=== PATIENT | female | born 1970 | race Caucasian/White ===

== ENCOUNTER 2016-07-01 11:09 | Emergency (ER) | payer MEDICAID ==
[~2016-07-01] VITALS: Ht 182.9 cm; Wt 108.9 kg
[~2016-07-01 11:09] MED LIST: ACETAMINOPHEN-1 EAC1 ORAL; ALBUTEROL SULF8.5 GM INH; AZITHROMYCIN250 MG ORAL; DIFLUCAN150 MG PO; IBUPROFEN800 MG ORAL; NKM; PREDNISONE20 MG ORAL; PROAIR HFA8.5 GM INH; PROMETHAZINE-C118 M1 ORAL; ZYRTEC10 MG ORAL
--- NOTE | 2016-07-01 12:21 | Emergency Room Report ---
History of Present Illness General Chief Complaint: Flu Like Symptoms Present Illness HPI The patient is a 46-year-old female presenting with 4 days of fever, chills, and productive cough. The patient also admits to audible wheezing. The patient states that she often gets bronchitis and this feels similar. The patient denies any pain. She denies CP, SOB, rash, VAZQUEZ, weakness, dizziness, hemoptysis, N, V Allergies: Coded Allergies: No Known Allergies (Unverified , 07/01/16) Patient History Past Medical History: see triage record Pertinent Family History: none Reviewed Nursing Documentation: PMH: Agreed, PSxH: Agreed Nursing Documentation-PMH Hx Cardiac Problems: No - Right knee replacment, right ankle surgery x 2 Hx Hypertension: No Hx Pacemaker: No Hx Asthma: Yes Hx COPD: No Hx Diabetes: No Hx Cancer: No Hx Gastrointestinal Problems: No Hx Dialysis: No Hx Neurological Problems: No Hx Cerebrovascular Accident: No Hx Seizures: No Review of Systems All Other Systems: negative except mentioned in HPI Physical Exam Vital Signs Date Time Temp Pulse Resp B/P Pulse Ox O2 Delivery O2 Flow Rate FiO2 07/01/16 11:26 99.3 111 20 105/71 96 Room Air Sp02 EP Interpretation: reviewed, normal General Appearance: no apparent distress, alert, GCS 15, non-toxic Head: normocephalic, atraumatic Eyes: bilateral eye PERRL, bilateral eye normal inspection ENT: hearing grossly normal, normal pharynx, no angioedema, normal voice, TMs + canals normal, uvula midline Neck: full range of motion, supple/symm/no masses Respiratory: normal inspection, no respiratory distress, wheezing - RLL, chest symmetrical Cardiovascular #1: regular rate, rhythm, no edema Gastrointestinal: normal bowel sounds, non tender, soft, non-distended, no guarding, no rebound Genitourinary: normal inspection, no CVA tenderness Musculoskeletal: back normal, gait/station normal, normal range of motion, non- tender Neurologic: alert, oriented x3, responsive, motor strength/tone normal, sensory intact, speech normal Psychiatric: judgement/insight normal, memory normal, mood/affect normal, no suicidal/homicidal ideation Skin: normal color, no rash, warm/dry, well hydrated Lymphatic: no adenopathy Medical Decision Making PA Attestation Dr. Clements is my supervising physician. Patient management was discussed with my supervising physician Diagnostic Impression: Primary Impression: Pneumonia Additional Impression: Vaginal yeast infection ER Course The patient is a 46-year-old female presenting with 4 days of fever, chills, and productive cough Differential diagnosis include but not limited to pharyngitis, sinusitis, AOM, bronchitis, PNA Physical exam:Afebrile. No apparent distress. HEENT exam is unremarkable. Lungs: Good breath sounds. There is right lower lobe wheezing. The patient will be discharged home and is given prescriptions for azithromycin , albuterol, and cough medication. The patient also states that she always gets a vaginal yeast infection after taking antibiotics and has asked for a prescription for Diflucan Last Vital Signs Date Time Temp Pulse Resp B/P Pulse Ox O2 Delivery O2 Flow Rate FiO2 07/01/16 11:26 99.3 111 20 105/71 96 Room Air Status: improved Disposition: HOME, SELF-CARE Condition: Improved Scripts Fluconazole (DIFLUCAN) 150 Mg Tablet 150 MG PO DAILY, #1 TAB Prov: SOLITARIOANBENJA P.A. 07/01/16 Prednisone* (PREDNISONE*) 20 Mg Tablet 20 MG ORAL DAILY, #5 TAB 0 Refills Prov: TERISRAELANRENATAY P.A. 07/01/16 Guaifenesin/Dextromethorphan (Robitussin Cough-Chest Dm Liq) 118 Ml Liquid 10 ML PO Q4HR, #118 ML Prov: TERZIANBENJA P.A. 07/01/16 Albuterol Sulfate* (PROAIR HFA*) 8.5 Gm Hfa.aer.ad 2 PUFFS INH Q6H, #8.5 GM 0 Refills Prov: SOLITARIOANBENJA P.A. 07/01/16 Azithromycin* (ZITHROMAX*) 250 Mg Tablet 250 MG ORAL DAILY, #6 TAB 0 Refills Take two tables once daily for 1 day, then one tablet once daily for 4 days. Prov: SOLITARIOANBENJA P.A. 07/01/16 BENJA BOWERS P.A. Jul 01, 2016 12:21
[2016-07-01] MEDS ORDERED: PROAIR HFA8.5 GM INH (12:24)
[2016-07-01] MEDS ORDERED: ROBITUSSIN COU118 M4 PO (12:24)
[2016-07-01] MEDS ORDERED: PREDNISONE20 MG ORAL (12:24)
[2016-07-01] MEDS ORDERED: ZITHROMAX250 MG ORAL (12:24)
[2016-07-01] MEDS ORDERED: DIFLUCAN150 MG PO (12:25)
[2016-07-01 12:29] VITALS: BP 107/73
== END 2016-07-01 12:35 | disposition home or self-care (01) ==
LOC: EMR 12:33
DX: J18.9 Pneumonia, unspecified organism (principal); B37.3 Candidiasis of vulva and vagina; J45.909 Unspecified asthma, uncomplicated
CPT/HCPCS: 99282

== ENCOUNTER 2016-07-03 08:40 | Emergency (ER) | payer MEDICAID ==
[~2016-07-03] VITALS: Ht 182.9 cm; Wt 108.9 kg
[~2016-07-03 08:40] MED LIST changes: +ROBITUSSIN COU118 M4 PO; +ZITHROMAX250 MG ORAL
[2016-07-03 08:54] VITALS: BP 123/77
[2016-07-03] MEDS ORDERED: Levalbuterol Inh UD 1.25mg/0.5ml HHN ONE (09:00)
[2016-07-03] MEDS ORDERED: Ipratropium 0.02% Inh Soln 2.5ml UD HHN ONE (09:00)
--- NOTE | 2016-07-03 09:02 | Emergency Room Report ---
History of Present Illness General Chief Complaint: Flu Like Symptoms Source: Patient Present Illness HPI Patient presents with complaints of ongoing cough and shortness of breath Patient has a history of asthma as well Feels with the flu symptoms it has exacerbated Denies any chest pain she has had fevers and chills subjectively Uncomfortable time sleeping Denies any vomiting or diarrhea denies any neck pain or photophobia Patient is concerned about the ongoing cough Allergies: Coded Allergies: No Known Allergies (Unverified , 07/01/16) Patient History Past Medical History: see triage record Pertinent Family History: none Last Menstrual Period: 06/02/16 Now: No Reviewed Nursing Documentation: PMH: Agreed, PSxH: Agreed Nursing Documentation-PMH Past Medical History: No History, Except For Hx Hypertension: No Hx Pacemaker: No Hx Asthma: Yes Hx COPD: No Hx Diabetes: No Hx Cancer: No Hx Gastrointestinal Problems: No Hx Dialysis: No Hx Neurological Problems: No Hx Cerebrovascular Accident: No Hx Seizures: No Review of Systems All Other Systems: negative except mentioned in HPI Physical Exam Vital Signs Date Time Temp Pulse Resp B/P Pulse Ox O2 Delivery O2 Flow Rate FiO2 07/03/16 08:46 98.4 105 20 123/77 97 Room Air Sp02 EP Interpretation: reviewed, normal General Appearance: well appearing, no apparent distress Head: normocephalic, atraumatic Eyes: bilateral eye EOMI, bilateral eye PERRL ENT: hearing grossly normal, normal pharynx, TMs + canals normal, uvula midline Neck: full range of motion, supple, no meningismus, no bony tend Respiratory: no rhonchi, no respiratory distress, no retraction, no accessory muscle use, wheezing - Final wheezing is noted in both lower lobes Cardiovascular #1: normal peripheral pulses, regular rate, rhythm, no edema, no gallop, no JVD, no murmur Gastrointestinal: normal bowel sounds, non tender, soft, no mass, no organomegaly, non-distended, no guarding, no hernia, no pulsatile mass, no rebound Musculoskeletal: normal inspection Neurologic: oriented x3, responsive, hole digger III-XII nml as tested, motor strength/ tone normal, sensory intact Psychiatric: mood/affect normal Skin: normal color, no rash, warm/dry, palpation normal Lymphatic: normal inspection, no adenopathy Medical Decision Making Diagnostic Impression: Primary Impression: Influenza-like symptoms Additional Impression: Bronchitis ER Course Patient did not have an imaging study of pain initially therefore one was performed today Patient did also receive a breathing treatment continues to do significantly better There is an asthma component as well which is exacerbating the patient symptoms As well Patient was treated symptomatically I did discuss the need for close outpatient followup Patient also requesting sleeping pills I did advice her that secondary to safety in prescribing campaign, followup with primary physician would be most appropriate for that Chest X-Ray Diagnostic Results EP Interpretation: Yes Findings: no consolidation, no effusion, no pneumothorax Number of Views: 1 Last Vital Signs Date Time Temp Pulse Resp B/P Pulse Ox O2 Delivery O2 Flow Rate FiO2 07/03/16 08:54 98.5 105 20 123/77 97 Room Air Status: improved Disposition: HOME, SELF-CARE Condition: Improved Scripts Promethazine HCl/Codeine (Prometh-Codein 6.25-10 mg/5 ml) 5 Ml Syrup 5 ML PO QHS for 7 Days, ML Prov: LILA SMITH D.O. 07/03/16 Referrals: [facility],REFERRING (PCP) Additional Instructions: Patient is provided with the discharge instructions notified to follow up with primary doctor in the next 2-3 days otherwise return to the er with any worsening symptoms. LILA SMITH D.O. Jul 03, 2016 09:02
[2016-07-03] MEDS ORDERED: LEVAQUIN500 MG ORAL (11:08)
[2016-07-03] MEDS ORDERED: PROMETH-CODEIN 65 ML PO (11:08)
[2016-07-03 11:21] VITALS: BP 129/73
--- NOTE | 2016-07-04 11:46 | Diagnostic Imaging Report ---
Indication: Shortness of breath Technique: XRAY CHEST 1 V Comparison: 06/23/15 Findings: Cardiomediastinal silhouette is stable. There is no consolidation or pleural effusion. Osseous structures are stable. Impression: No acute cardiopulmonary disease.
== END 2016-07-03 11:22 | disposition home or self-care (01) ==
LOC: EMR 08:56
DX: J40 Bronchitis, not specified as acute or chronic (principal); J11.1 Influenza due to unidentified influenza virus with other respiratory manifestations; J45.909 Unspecified asthma, uncomplicated
CPT/HCPCS: 71010; 94640; 94664; 99283; J7644

== ENCOUNTER 2017-10-12 12:04 | Emergency (ER) | payer MEDICAID ==
[~2017-10-12] VITALS: Ht 182.9 cm; Wt 120.2 kg
[~2017-10-12 12:04] MED LIST changes: +LEVAQUIN500 MG ORAL; +PROMETH-CODEIN 65 ML PO
[2017-10-12 12:19] VITALS: BP 115/70
[2017-10-12] MEDS ORDERED: Albuterol/Ipratropium 3ml neb HHN ONE (12:45)
--- NOTE | 2017-10-12 13:02 | Emergency Room Report ---
History of Present Illness General Chief Complaint: Flu Like Symptoms Present Illness HPI 47 YO Female presents to the ED c/o dry cough and chest congestion x 5 day(s). hx of bronchitis that led to PNA in the past. pt. reports some yellow phlegm today which prompted her to come to the ED. pt. has associated sore throat, body aches, fatigue. Patient denies fever she reports she has had chills a couple times. Patient denies ill contacts or recent travel. Patient denies wheezing, dyspnea or feeling short of breath. She reports nasal congestion and rhinorrhea. Denies ear pain, high fevers, lethargy, neck pain/stiffness, irritability, photophobia, dehydration, N/V/D. Denies Cp, Palpitations, or changes in Hearing or vision, no Sudden severe VAZQUEZ. Allergies: Coded Allergies: No Known Allergies (Unverified , 07/01/16) Patient History Past Medical History: see triage record Past Surgical History: none Now: No Immunizations: UTD Reviewed Nursing Documentation: PMH: Agreed; PSxH: Agreed Nursing Documentation-PMH Hx Hypertension: No Hx Pacemaker: No Hx Asthma: Yes Hx COPD: No Hx Diabetes: No Hx Cancer: No Hx Gastrointestinal Problems: No Hx Dialysis: No Hx Neurological Problems: No Hx Cerebrovascular Accident: No Hx Seizures: No Review of Systems All Other Systems: negative except mentioned in HPI Physical Exam Vital Signs Date Time Temp Pulse Resp B/P (MAP) Pulse Ox O2 Delivery O2 Flow Rate FiO2 10/12/17 12:07 98.1 91 20 115/70 99 Room Air 98.1 10/12/17 12:44 97 Sp02 EP Interpretation: reviewed, normal General Appearance: no apparent distress, alert, GCS 15, non-toxic Head: normocephalic, atraumatic Eyes: bilateral eye normal inspection, bilateral eye PERRL ENT: hearing grossly normal, normal pharynx, normal voice, TMs + canals normal , uvula midline, moist mucus membranes Neck: full range of motion, no meningismus Respiratory: chest non-tender, lungs clear, normal breath sounds, no rhonchi, no respiratory distress, speaking full sentences, wheezing - mild/ scant bilateral wheezing in upper lung george. Cardiovascular #1: regular rate, rhythm, no edema, normal capillary refill Musculoskeletal: back normal, gait/station normal, normal range of motion, non- tender Neurologic: alert, oriented x3, responsive, motor strength/tone normal, sensory intact, speech normal, grossly normal Psychiatric: judgement/insight normal Skin: normal color, no rash, warm/dry, well hydrated Lymphatic: no adenopathy Medical Decision Making PA Attestation Dr. Carrera is my supervising Physician whom patient management has been discussed with. Diagnostic Impression: Primary Impression: Acute bronchitis Qualified Codes: J20.9 - Acute bronchitis, unspecified ER Course Pt. presents to the ED c/o dry cough and chest congestion x 5 day(s). hx of bronchitis that led to PNA in the past. pt. reports some yellow phlegm today which prompted her to come to the ED. pt. has associated sore throat, body aches , fatigue. Patient denies fever she reports she has had chills a couple times. Patient denies ill contacts or recent travel. Patient denies wheezing, dyspnea or feeling short of breath. She reports nasal congestion and rhinorrhea. Denies ear pain, high fevers, lethargy, neck pain/stiffness, irritability, photophobia, dehydration, N/V/D. Denies Cp, Palpitations, or changes in Hearing or vision, no Sudden severe VAZQUEZ. Ddx considered but are not limited to URI, pneumonia, PE, strep pharyngitis, meningitis. Vital signs: Pt.is afebrile VS are WNL H&PE are most consistent with bronchitis, non-toxic in appearance, NAD. ORDERS: none required at this time, the diagnosis is clinical ED INTERVENTIONS: -Wm -I discussed extensively about antibiotic resistance and I feel her presentation exhibits bilateral symptoms rather than bacterial infection. She was very hesitant as she was worried that she has pneumonia. She was given reassurance. Discussed antibiotic treatment and if she has worsening of her symptoms or develops fever that at that time antibiotics would be appropriate. DISCHARGE: At this time pt. is stable for d/c to home. Will provide printed patient care instructions, and any necessary prescriptions. Care plan and follow up instructions have been discussed with the patient prior to discharge. Last Vital Signs Date Time Temp Pulse Resp B/P (MAP) Pulse Ox O2 Delivery O2 Flow Rate FiO2 10/12/17 12:44 21 10/12/17 12:44 76 16 98 Room Air 10/12/17 12:19 98.1 115/70 98.1 Disposition: HOME, SELF-CARE Condition: Stable Scripts Naproxen* (NAPROXEN*) 500 Mg Tablet.dr 500 MG ORAL TWICE A DAY for 7 Days, #14 TAB Prov: Meagan Anglin 10/12/17 Albuterol Sulfate* (ALBUTEROL SULFATE MDI*) 8.5 Gm Hfa.aer.ad 2 PUFF INH Q4H, #1 INH 0 Refills Prov: Meagan Anglin 10/12/17 Cetirizine Hcl/Pseudoephedrine (ZYRTEC-D TABLET) 1 Each Tab.er.12h 1 EACH ORAL Q12HR for 7 Days, #14 TAB Prov: Meagan Anglin 10/12/17 Guaifenesin (Guaifenesin) 1,200 Mg Tab.er.12h 1200 MG PO BID, #20 TAB Prov: Meagan Anglin 10/12/17 Codeine/Promethazine Hcl* (PROMETHAZINE-CODEINE SYRUP*) 118 Ml Syrup 5 ML ORAL Q6H PRN for For Cough, #120 ML 0 Refills Prov: Meagan Anglin 10/12/17 Referrals: NON PHYSICIAN (PCP) Patient Instructions: Acute Bronchitis Additional Instructions: Take medications as directed. * Only fill and take "delayed antibiotic RX if you : Develop measured fevers over 101.0 Follow up with a Primary Care Provider in 3-5 days, even if your symptoms have resolved. --Please review list of primary care clinics, if you do not already have a primary care provider Return sooner to ED if new symptoms occur, or current symptoms become worse. Do not drink alcohol, drive, or operate heavy machinery while taking Cough Syrup as this may cause drowsiness. - Please note that this Emergency Department Report was dictated using [employer] detail representative technology software, occasionally this can lead to erroneous entry secondary to interpretation by the dictation equipment. Meagan Anglin October 12, 2017 13:02
[2017-10-12] MEDS ORDERED: GUAIFENESIN1200 MG PO (13:05)
[2017-10-12] MEDS ORDERED: PROMETHAZINE-C118 M1 ORAL (13:05)
[2017-10-12] MEDS ORDERED: ZYRTEC-D TABLE1 EACH ORAL (13:05)
[2017-10-12] MEDS ORDERED: ALBUTEROL SULF8.5 GM INH (13:05)
[2017-10-12] MEDS ORDERED: NAPROXEN500 M1 ORAL (13:05)
[2017-10-12 13:23] VITALS: BP 115/70
== END 2017-10-12 13:26 | disposition home or self-care (01) ==
LOC: EMR 12:38
DX: J20.9 Acute bronchitis, unspecified (principal); J45.909 Unspecified asthma, uncomplicated
CPT/HCPCS: 94640; 99284; J7620

== ENCOUNTER 2018-06-07 10:43 | Emergency (ER) | payer MEDICAID ==
[~2018-06-07] VITALS: Ht 182.9 cm; Wt 129.3 kg
[~2018-06-07 10:43] MED LIST changes: +GUAIFENESIN1200 MG PO; +NAPROXEN500 M1 ORAL; +ZYRTEC-D TABLE1 EACH ORAL
[2018-06-07 10:50] VITALS: BP 109/62
[2018-06-07] MEDS ORDERED: COLACE100 MG ORAL (12:37)
[2018-06-07] MEDS ORDERED: ANUSOL-HC30 GM RC (12:37)
[2018-06-07] MEDS ORDERED: LD2JL30 TOPIC (12:44)
[2018-06-07 13:00] VITALS: BP 110/70
--- NOTE | 2018-06-09 18:16 | Emergency Room Report ---
History of Present Illness General Chief Complaint: Skin Rash/Abscess Source: Patient Present Illness HPI Patient is a 48-year-old female who presented after increased rectal discomfort. Patient stated that she had been using Preparation H without any improvement. She states that she thinks he may have an abscess. Patient denies fever. She states that she has had similar symptoms in the past. She states this been present for approximately 2 weeks. She denies any prior immunocompromise. Allergies: Coded Allergies: No Known Allergies (Unverified , 07/01/16) Patient History Past Medical History: see triage record Reviewed Nursing Documentation: PMH: Agreed; PSxH: Agreed Nursing Documentation-PMH Past Medical History: No History, Except For Hx Hypertension: No Hx Pacemaker: No Hx Asthma: Yes Hx COPD: No Hx Diabetes: No Hx Cancer: No Hx Gastrointestinal Problems: No Hx Dialysis: No Hx Neurological Problems: No Hx Cerebrovascular Accident: No Hx Seizures: No Review of Systems All Other Systems: negative except mentioned in HPI Physical Exam Vital Signs Date Time Temp Pulse Resp B/P (MAP) Pulse Ox O2 Delivery O2 Flow Rate FiO2 06/07/18 10:50 98.2 18 109/62 98 Room Air 06/07/18 10:50 98 General Appearance: well appearing, no apparent distress, alert, GCS 15, obese Head: normocephalic, atraumatic ENT: hearing grossly normal, normal voice Neck: full range of motion, supple Respiratory: no respiratory distress, speaking full sentences Cardiovascular #1: normal inspection Gastrointestinal: normal inspection Rectal: hemorrhoids - thrombosed hemorrhoid Genitourinary: deferred Musculoskeletal: no calf tenderness Neurologic: normal gait Psychiatric: mood/affect normal Skin: no rash Medical Decision Making Diagnostic Impression: Primary Impression: Thrombosed hemorrhoids ER Course Patient presented for rectal pain. Differential diagnosis includes is not limited to abscess, hemorrhoid, colorectal cancer among others. Patient has a benign exam and does not appear to require any further imaging or laboratory testing at this time. Patient was advised that she may have a thrombosed hemorrhoid. Patient symptoms were greater than 2 weeks. This was discussed with Dr. Arciniega who agreed to see the patient in his clinic. Patient was given discharge information. She was given prescription for symptomatic treatment. There is no evidence of abscess at this time. Last Vital Signs Date Time Temp Pulse Resp B/P (MAP) Pulse Ox O2 Delivery O2 Flow Rate FiO2 06/07/18 13:00 97.9 88 20 110/70 100 Room Air Status: improved Disposition: HOME, SELF-CARE Condition: Stable Scripts Lidocaine HCL 2% Jelly* (Lidocaine Jelly 2%*) 5 Ml Jel.pf.kelsi 5 ML TOPIC DAILY, #15 ML Prov: Jose Roberto Carrera MD 06/07/18 Hydrocortisone Hc 2.5% Cream (ANUSOL-HC 2.5% CREAM) Y Cr 10 GM RC PRN, #30 GM Prov: Jose Roberto Carrera MD 06/07/18 Docusate Sodium* (COLACE*) 100 Mg Capsule 100 MG ORAL TWICE A DAY, #30 CAP Prov: Jose Roberto Carrera MD 06/07/18 Referrals: Kristian Arciniega PHYSICIAN (PCP) Patient Instructions: Hemorrhoids Additional Instructions: Follow up with general surgery for recheck in next few days, return if worse Jose Roberto Carrera MD Jun 09, 2018 18:16
== END 2018-06-07 13:00 | disposition home or self-care (01) ==
LOC: EMR 12:51
DX: K64.5 Perianal venous thrombosis (principal); J45.909 Unspecified asthma, uncomplicated
CPT/HCPCS: 99282

== ENCOUNTER 2019-01-04 10:34 | Emergency (ER) | payer MEDICAID ==
[~2019-01-04] VITALS: Ht 182.9 cm; Wt 102.1 kg
[~2019-01-04 10:34] MED LIST changes: +ANUSOL-HC30 GM RC; +COLACE100 MG ORAL; +LD2JL30 TOPIC
--- NOTE | 2019-01-04 10:37 | NUR ---
ED Nurse Note: pt not found on waiting area.
--- NOTE | 2019-01-04 10:51 | NUR ---
ED Nurse Note: pt with exp wheezing noted with auscultation, speaks full sentences well. states cough and s/s not improving despite use of MDI and abx course. yellow beige phlegm per pt.
[2019-01-04 10:53] VITALS: BP 126/84
--- NOTE | 2019-01-04 11:21 | Emergency Room Report ---
History of Present Illness General Chief Complaint: Upper Respiratory Illness Source: Patient, Medical Record Present Illness HPI 8-year-old female with history of asthma presents with 3-week history of cough, clear sputum production. she reports she is been trying her home inhaler with only partial relief and shortness of breath. She denies recent steroid use. She does however report that she just finished a course of amoxicillin 2 days ago for pneumonia. However, she still feels short of breath, she denies any leg pain, leg swelling, chest pain, does report subjective fevers prior to her antibiotic course. Allergies: Coded Allergies: No Known Allergies (Unverified , 07/01/16) Patient History Past Medical History: see triage record, asthma Last Menstrual Period: 12/22/18 Reviewed Nursing Documentation: PMH: Agreed; PSxH: Agreed Nursing Documentation-PMH Past Medical History: No History, Except For Hx Hypertension: No Hx Pacemaker: No Hx Asthma: Yes Hx COPD: No Hx Diabetes: No Hx Cancer: No Hx Gastrointestinal Problems: No Hx Dialysis: No Hx Neurological Problems: No Hx Cerebrovascular Accident: No Hx Seizures: No Review of Systems All Other Systems: negative except mentioned in HPI Physical Exam Vital Signs Date Time Temp Pulse Resp B/P (MAP) Pulse Ox O2 Delivery O2 Flow Rate FiO2 01/04/19 10:43 97.9 83 16 126/84 (98) 96 Room Air Sp02 EP Interpretation: reviewed, normal General Appearance: no apparent distress, alert, non-toxic Head: normocephalic Eyes: bilateral eye normal inspection, bilateral eye PERRL, bilateral eye EOMI ENT: normal ENT inspection, hearing grossly normal, normal pharynx, no angioedema, normal voice, moist mucus membranes Neck: normal inspection, full range of motion, supple, supple/symm/no masses Respiratory: chest non-tender, decreased breath sounds - At bases bilaterally, speaking full sentences, wheezing, chest symmetrical, palpation of chest normal Cardiovascular #1: normal peripheral pulses, regular rate, rhythm, no edema Cardiovascular #2: 2+ radial (R), 2+ radial (L), 2+ dorsalis pedis (R), 2+ dorsalis pedis (L) Gastrointestinal: normal inspection, non tender, soft, no mass, no guarding, no rebound Rectal: deferred Genitourinary: normal inspection, no CVA tenderness Musculoskeletal: back normal, gait/station normal, normal range of motion, non- tender, no calf tenderness, Vicente's Sign negative Neurologic: alert, responsive, director of state III-XII nml as tested, motor strength/tone normal, sensory intact, speech normal Psychiatric: judgement/insight normal, memory normal, mood/affect normal Lymphatic: no adenopathy Medical Decision Making Diagnostic Impression: Primary Impression: Asthma exacerbation ER Course Patient with signs and symptoms of asthma exacerbation, no rhonchi on examination to suspect pneumonia, patient given nebulizers here and upon reevaluation is clear lungs, given steroids, will discharge with albuterol and prednisone. Patient refused prednisone bc she says it gives her palpitations, I explained that it's likely the alubterol that does that. In any case she was in disagreement, will dc with prednisone rx and hopefully patient will change her mind and take it. Repeat lung exam improved, cxr without PNA. Chest X-Ray Diagnostic Results Chest X-Ray Diagnostic Results : Chest X-Ray Ordered: Yes # of Views/Limited/Complete: 1 View Indication: Shortness of Breath EP Interpretation: Yes Interpretation: no consolidation, no effusion, no pneumothorax, no acute cardiopulmonary disease Impression: No acute disease Electronically Signed by: Piyush Griffiths MD Last Vital Signs Date Time Temp Pulse Resp B/P (MAP) Pulse Ox O2 Delivery O2 Flow Rate FiO2 01/04/19 10:53 97.9 83 16 126/84 96 Room Air Disposition: HOME, SELF-CARE Condition: Stable Scripts Prednisone* (PREDNISONE*) 20 Mg Tablet 40 MG ORAL DAILY for 5 Days, #5 TAB Prov: PIYUSH GRIFFITHS M.D 01/04/19 Albuterol Sulfate* (ALBUTEROL SULFATE MDI*) 8.5 Gm Hfa.aer.ad 2 PUFF INH Q4H PRN for cough/wheezing, #1 EA 0 Refills Prov: PIYUSH GRIFFITHS M.D 01/04/19 Referrals: [facility],REFERRING (PCP) PIYUSH GRIFFITHS M.D Jan 04, 2019 11:21
--- NOTE | 2019-01-04 11:34 | NUR ---
ED Nurse Note: resp therapist administering hhn and pcxr done
[2019-01-04] MEDS: Albuterol ud Inhalation HHN SCH ×3 (11:41→12:22)
[2019-01-04] MEDS: Ipratropium 0.02% Inh Soln 2.5ml UD HHN SCH ×3 (11:41→12:21)
--- NOTE | 2019-01-04 11:48 | NUR ---
ED Nurse Note: pt with hhn going. pt refusing prednisone as she states it makes her heart flutter too much. made aware.
[2019-01-04] MEDS ORDERED: ALBUTEROL SULF8.5 GM INH (12:03)
[2019-01-04] MEDS ORDERED: PREDNISONE20 MG ORAL (12:03)
--- NOTE | 2019-01-04 12:26 | NUR ---
ED Nurse Note: pt with improved aeration. reeval by .
[2019-01-04] MEDS ORDERED: ZITHROMAX250 MG ORAL (12:32)
[2019-01-04] MEDS ORDERED: FLUCONAZOLE150 MG ORAL (12:32)
[2019-01-04] MEDS ORDERED: TESSALON PERLE100 MG ORAL (12:34)
--- NOTE | 2019-01-04 12:54 | Diagnostic Imaging Report ---
Indication: Dyspnea Comparison: 07/03/2016 A single view chest radiograph was obtained. Findings: Cardiomediastinal appearance is within normal limits for age. The lungs are clear. Pulmonary vascularity is appropriate. The diaphragmatic contour is smooth and costophrenic angles are sharp. No pleural effusions are identified. The bones are unremarkable. Impression: No acute findings
[2019-01-04 13:01] VITALS: BP 126/80
--- NOTE | 2019-01-04 13:01 | NUR ---
ER DISCHARGE NOTE: Patient is cleared to be discharged per ERMD, pt is aox4, on room air, with stable vital signs. pt was given dc and prescription instructions, pt was able to verbalize understanding, pt id band removed without complications. pt is able to ambulate with steady gait. pt took all belongings.
== END 2019-01-04 13:02 | disposition home or self-care (01) ==
LOC: EMR 11:15
DX: J45.901 Unspecified asthma with (acute) exacerbation (principal)
CPT/HCPCS: 71045; 94640; 94664; 99283

== ENCOUNTER 2019-05-01 16:04 | Emergency (ER) | payer MEDICAID ==
[~2019-05-01] VITALS: Ht 182.9 cm; Wt 108.9 kg
[~2019-05-01 16:04] MED LIST changes: +FLUCONAZOLE150 MG ORAL; +TESSALON PERLE100 MG ORAL
[2019-05-01 16:14] VITALS: BP 131/68
[2019-05-01] MEDS ORDERED: HYDROcodone/Acetamin 5/325 tab ORAL ONE (16:45)
--- NOTE | 2019-05-01 16:59 | Emergency Room Report ---
History of Present Illness General Chief Complaint: Lower Extremity Injury Source: Medical Record Present Illness HPI 49-year-old female presents to the emergency department complaining of 8 out of 10 severity pain that is localized to the left ankle with associated swelling, bruising and tenderness to palpation. Patient reports that she rolled her ankle on Tuesday (4) days ago. Denies numbness tingling or loss of sensation or gross motor movements of the extremities, incontinence of bowel or bladder. Denies CP, Palpitations, LOC, AMS, dizziness, Changes in Vision, weakness or a sudden severe headache. She reports no improvement of her pain with Motrin and she states weightbearing exacerbates her symptoms. Allergies: Coded Allergies: No Known Allergies (Unverified , 07/01/16) Patient History Past Medical History: see triage record Past Surgical History: none Pertinent Family History: none Now: No Reviewed Nursing Documentation: PMH: Agreed; PSxH: Agreed Nursing Documentation-PMH Hx Hypertension: No Hx Pacemaker: No Hx Asthma: Yes Hx COPD: No Hx Diabetes: No Hx Cancer: No Hx Gastrointestinal Problems: No Hx Dialysis: No Hx Neurological Problems: No Hx Cerebrovascular Accident: No Hx Seizures: No Review of Systems All Other Systems: negative except mentioned in HPI Physical Exam Vital Signs Date Time Temp Pulse Resp B/P (MAP) Pulse Ox O2 Delivery O2 Flow Rate FiO2 05/01/19 16:14 98.8 106 18 131/68 (89) 98 Room Air Sp02 EP Interpretation: reviewed, normal General Appearance: no apparent distress, alert, GCS 15, non-toxic, mild distress Head: normocephalic, atraumatic Eyes: bilateral eye normal inspection, bilateral eye PERRL ENT: hearing grossly normal, normal voice Neck: full range of motion Respiratory: lungs clear, normal breath sounds, speaking full sentences Cardiovascular #1: regular rate, rhythm, normal capillary refill Musculoskeletal: normal range of motion, swelling - Lateral aspect of the left ankle, tender - Lateral aspect of the left ankle with associated swelling and bruising. NVI Neurologic: alert, oriented x3, responsive, motor strength/tone normal, sensory intact, speech normal, grossly normal Psychiatric: judgement/insight normal Skin: Ecchymosis/Bruising - Lateral aspect of the left ankle Medical Decision Making PA Attestation Dr. Deng Is my supervising Physician whom patient management has been discussed with. Diagnostic Impression: Primary Impression: Moderate left ankle sprain Qualified Codes: S93.402A - Sprain of unspecified ligament of left ankle, initial encounter ER Course 49-year-old female presents to the emergency department complaining of 8 out of 10 severity pain that is localized to the left ankle with associated swelling, bruising and tenderness to palpation. Patient reports that she rolled her ankle on Tuesday (4) days ago. Denies numbness tingling or loss of sensation or gross motor movements of the extremities, incontinence of bowel or bladder. Denies CP, Palpitations, LOC, AMS, dizziness, Changes in Vision, weakness or a sudden severe headache. She reports no improvement of her pain with Motrin and she states weightbearing exacerbates her symptoms. Ddx considered but are not limited to Fracture, dislocation, contusion, Sprain/ Strain/Spasm. Vital signs: are WNL, pt. is afebrile H&PE are most consistent with musculoskeletal injury will perform imaging to r/ o fractures/dislocations. ORDERS: - X-ray left ankle 3 views - negative for fx, Dislocation, or significant soft tissue injury, per preliminary read in ED, and signed by MARIFER Anglin , my supervising physician has reviewed, and agrees with my interpretation. ED INTERVENTIONS: -5 mg Dan[place] -Left ankle air splint applied by autobody technician. Pt. remains neurovascularly intact. -Patient is provided with crutches and instructed on their use DISCHARGE: At this time pt. is stable for d/c to home. Will provide printed patient care instructions, and any necessary prescriptions. Care plan and follow up instructions have been discussed with the patient prior to discharge. Other X-Ray Diagnostic Results Other X-Ray Diagnostic Results : X-Ray ordered: Left ankle # of Views/Limited Vs Complete: 3 View Indication: Pain EP Interpretation: Yes MARIFER Xray: Interpretation reviewed, by supervising MD, and agrees with findings. Interpretation: no dislocation, no soft tissue swelling, no fractures Impression: No acute disease Electronically Signed by: Meagan Anglin PA-C Last Vital Signs Date Time Temp Pulse Resp B/P (MAP) Pulse Ox O2 Delivery O2 Flow Rate FiO2 05/01/19 16:14 98.8 106 18 131/68 (89) 98 Room Air Disposition: HOME, SELF-CARE Condition: Stable Patient Instructions: Ankle Sprain Additional Instructions: Take medications as directed. Follow up with an [facility] in 3-5 days, even if your symptoms have resolved. If symptoms persist MRI may be required at the discretion of your PCP or Ortho Specialist. --Please review list of primary care clinics, if you do not already have a primary care provider who can give you an Orthopedic Referral. Return sooner to ED if new symptoms occur, or current symptoms become worse. Do not drink alcohol, drive, or operate heavy machinery while taking Danforth as this may cause drowsiness. - Please note that this Emergency Department Report was dictated using [email or web address] marble worker technology software, occasionally this can lead to erroneous entry secondary to interpretation by the dictation equipment. Meagan Anglin May 01, 2019 16:59
[2019-05-01] MEDS ORDERED: IBUPROFEN600 MG ORAL (17:46)
[2019-05-01] MEDS ORDERED: HYDROCODON-ACE1 EA15 ORAL (17:46)
--- NOTE | 2019-05-02 09:52 | Diagnostic Imaging Report ---
Indication: Left ankle pain Technique: 3 views of the left ankle Comparison: none Findings: No acute fractures. No dislocations. The joint spaces are preserved. Impression: Negative
== END 2019-05-01 17:54 | disposition home or self-care (01) ==
LOC: EMR 16:40
DX: S93.402A Sprain of unspecified ligament of left ankle, initial encounter (principal); X58.XXXA Exposure to other specified factors, initial encounter; Y92.9 Unspecified place or not applicable
CPT/HCPCS: 73610; Z7502; 99283

== ENCOUNTER 2019-05-24 16:24 | Emergency (ER) | payer MEDICAID ==
[~2019-05-24] VITALS: Ht 182.9 cm; Wt 108.9 kg
[~2019-05-24 16:24] MED LIST changes: +HYDROCODON-ACE1 EA15 ORAL; +IBUPROFEN600 MG ORAL
--- NOTE | 2019-05-24 16:50 | NUR ---
ED Nurse Note: Patient walked in to ER c/o left ankle pain due to injury 3 weeks ago. Patient is using cane. VSS.
--- NOTE | 2019-05-24 18:54 | Emergency Room Report ---
History of Present Illness General Chief Complaint: Lower Extremity Injury Source: Patient Present Illness HPI 49 YO Female presents to the ED c/o 02/20 in severity Left ankle pain that has been persistent x 1 month. Patient is awaiting preauthorization to CAT scan as when she was seen by orthopedic follow-up she was told she is not a candidate for MRI due to having a right knee prosthesis. She denies new trauma or fall. Patient is requesting orthopedic boot as she is still awaiting insurance preauthorization to receive one from the orthopedist that she followed up with. Patient reports persistent intermittent swelling of the ankle denies calf pain or tenderness denies erythema or bruising. Pain exacerbated with standing/ walking. relieved mildly with elevation/rest. Patient has received an additional small quantity of [place] from her PCP for which she states is not helping her symptoms. No other aggravating or relieving factors at this time. Allergies: Coded Allergies: No Known Allergies (Unverified , 07/01/16) Patient History Past Medical History: see triage record Past Surgical History: unable to obtain Pertinent Family History: none Last Menstrual Period: 04/24/19 Now: No Reviewed Nursing Documentation: PMH: Agreed; PSxH: Agreed Nursing Documentation-PMH Past Medical History: No History, Except For Hx Hypertension: No Hx Pacemaker: No Hx Asthma: Yes Hx COPD: No Hx Diabetes: No Hx Cancer: No Hx Gastrointestinal Problems: No Hx Dialysis: No Hx Neurological Problems: No Hx Cerebrovascular Accident: No Hx Seizures: No Review of Systems All Other Systems: negative except mentioned in HPI Physical Exam Vital Signs Date Time Temp Pulse Resp B/P (MAP) Pulse Ox O2 Delivery O2 Flow Rate FiO2 05/24/19 16:40 98.2 96 18 153/88 (109) 96 Room Air Sp02 EP Interpretation: reviewed, normal General Appearance: no apparent distress, alert, GCS 15, non-toxic Head: normocephalic, atraumatic Eyes: bilateral eye normal inspection, bilateral eye PERRL ENT: hearing grossly normal, normal voice Neck: full range of motion Respiratory: lungs clear, normal breath sounds, speaking full sentences Cardiovascular #1: regular rate, rhythm, normal capillary refill Cardiovascular #2: 2+ dorsalis pedis (L) Gastrointestinal: normal bowel sounds, non tender, soft Rectal: deferred Genitourinary: normal inspection Musculoskeletal: normal range of motion - with pain, tender - ttp to the lateral aspect of the left ankle., other - pt. using cane to ambulate. compensatory gait favoring the left side. Neurologic: alert, motor strength/tone normal, oriented x3, sensory intact, responsive, speech normal, grossly normal Psychiatric: judgement/insight normal Lymphatic: no adenopathy Medical Decision Making PA Attestation Dr. Brandon is my supervising Physician whom patient management has been discussed with. Diagnostic Impression: Primary Impression: Ankle pain, left Qualified Codes: M25.572 - Pain in left ankle and joints of left foot ER Course 49 YO Female presents to the ED c/o 02/20 in severity Left ankle pain that has been persistent x 1 month. Patient is awaiting preauthorization to CAT scan as when she was seen by orthopedic follow-up she was told she is not a candidate for MRI due to having a right knee prosthesis. She denies new trauma or fall. Patient is requesting orthopedic boot as she is still awaiting insurance preauthorization to receive one from the orthopedist that she followed up with. Patient reports persistent intermittent swelling of the ankle denies calf pain or tenderness denies erythema or bruising. Pain exacerbated with standing/ walking. relieved mildly with elevation/rest. Patient has received an additional small quantity of [place] from her PCP for which she states is not helping her symptoms. No other aggravating or relieving factors at this time. Ddx considered but are not limited to Fracture, dislocation, contusion, Sprain/ Strain/Spasm, Ligamental tear. Vital signs: are WNL, pt. is afebrile H&PE are most consistent with persistent musculoskeletal injury, Pt. is not wearing previously applied air-cast. She is using a cane. ORDERS: - X-ray not required at this time as patient has not had any new trauma since previous normal x-ray. Patient is awaiting preauthorization to CAT scan as when she was seen by orthopedic follow-up she was told she is not a candidate for MRI due to having a right knee prosthesis. ED INTERVENTIONS: - Pt. offered re-application of airsplint for which she declined. -PT. given Orthopedic Urgent care resource information for follow up. -I do not identify an emergent condition at this time. With current presentation , pt. is stable for close outpatient follow up and conservative treatment. D/ w pt. to return promptly to ED with worsening or new symptoms.- Pt. verbalizes' understanding and agreement with proposed treatment plan. DISCHARGE: At this time pt. is stable for d/c to home. Will provide printed patient care instructions, and any necessary prescriptions. Care plan and follow up instructions have been discussed with the patient prior to discharge. Last Vital Signs Date Time Temp Pulse Resp B/P (MAP) Pulse Ox O2 Delivery O2 Flow Rate FiO2 05/24/19 16:40 98.2 96 18 153/88 (109) 96 Room Air Disposition: HOME, SELF-CARE Condition: Stable Scripts Diclofenac Sodium (VOLTAREN) 100 Gm Gel..gram. 1 APPLIC TP Q6HR, #100 GM Prov: Meagan Anglin 05/24/19 Patient Instructions: Medical Screening Exam Additional Instructions: Take medications as directed. Follow up with an EMR ANALYST in 3-5 days, even if your symptoms have resolved. If symptoms persist CT may be required at the discretion of your PCP or Ortho Specialist. --Please review ORTHOPEDIC URGENT CARE RESOURCE information for follow up if needed. Return sooner to ED if new symptoms occur, or current symptoms become worse. - Please note that this Emergency Department Report was dictated using [employer] writer technology software, occasionally this can lead to erroneous entry secondary to interpretation by the dictation equipment. Meagan Anglin May 24, 2019 18:54
[2019-05-24] MEDS ORDERED: VOLTAREN100 G1 TP (18:57)
[2019-05-24 19:05] VITALS: BP 153/88
--- NOTE | 2019-05-24 19:05 | NUR ---
ED Nurse Note: Pt cleared by ERMD for discharge. DC instructions/prescription was given and explained to pt and verbalized understanding of teachings. All medical deviecs such as ID band removed. Pt is AAO x4, ambulatory and left with all personal belongings.
== END 2019-05-24 19:05 | disposition home or self-care (01) ==
LOC: EMR 19:00
DX: M25.572 Pain in left ankle and joints of left foot (principal); J45.909 Unspecified asthma, uncomplicated
CPT/HCPCS: 99282